=== PATIENT | female | born 1965 | race Caucasian/White ===

== ENCOUNTER 2019-03-05 09:35 | Inpatient (IN) ==
[2019-03-05 09:44] VITALS: BMI 31.8
[2019-03-05] MEDS ORDERED: DEMEROL INJ IVP ONE ×2 (10:25→13:53)
[2019-03-05] MEDS ORDERED: ZOFRAN INJ 4 MG VIAL IVP ONE (10:25)
--- NOTE | 2019-03-05 10:28 | ED.ABDFE ---
HPI Time Seen Time Seen by Provider: 03/05/19 10:23 PCP Primary Care Physician: WANG MEDRANO Complaint Chief Complaint:: PT C/O RUQ PAIN THAT STARTED LAST NIGHT AND IT IS THROBBING AND PT C/O HAVING BLISTERS IN HER MOUTH.B.R Self Treatment fo Chief Complaint: NO WHEEZING NOTED OR BLISTERS NOTED ,BR Source History Provided: Patient Mode of arrival Mode of Arrival: Ambulatory Timing Onset of Chief Complaint: 03/05/19 PMH PMH Past Medical History: Yes Past Medical History: Asthma Past Surgical History: Yes Surgical History: Past Surgical History Comment: BACK Family History History of Family Medical Conditions: No Family Medical History: Diabetes Mellitus, Cancer, [place], Coronary Artery Disease and Hypertension Social History Does patient currently use any type of tobacco product: Yes Have you used tobacco products in the last 12 months: Yes Type of Tobacco Use: Cigarettes How many years tobacco product used: 30 Does any household member use tobacco: No Alcohol Use: None Do you use any recreational Drugs:: No Lives With: Family Lives Where: Home infectious screening In the last 2 months have you had wt loss of >10#?: NO Have you had fever, night sweats or hemotysis?: No Have you traveled outside the country in the last 6 months?: No Isolation: Standard PE Vital Signs Vitals: Temperature 96.0 F Pulse Rate [Left Brachial] 46 Pulse Rate 72 Respiratory Rate 17 Blood Pressure [Left Arm] 115/57 Blood Pressure 150/66 O2 Sat by Pulse Oximetry 95 ROR Labs Reviewed Result Diagrams: 03/05/19 10:15 03/05/19 10:15 Laboratory: WBC 7.0 X10^3/uL (3.6-10.0) 03/05/19 10:15 RBC 3.88 X10^6/uL (3.5-5.4) 03/05/19 10:15 Hgb 13.2 g/dL (12.0-16.0) 03/05/19 10:15 Hct 37.5 % (36.0-47.0) 03/05/19 10:15 MCV 96.6 fL (80.0-100.0) 03/05/19 10:15 MCH 33.9 pg (27.0-34.0) 03/05/19 10:15 MCHC 35.1 g/dL (33.0-35.0) H 09/30/19 10:15 RDW 12.8 % (11.6-16.5) 03/05/19 10:15 Plt Count 194 X10^3/uL (150.0-450.0) 03/05/19 10:15 MPV 9.4 fL (7.4-11.0) 03/05/19 10:15 Neut % (Auto) 49.8 % (42.0-75.0) 03/05/19 10:15 Lymph % (Auto) 44.2 % (21.0-51.0) 03/05/19 10:15 Ward % (Auto) 4.8 % (0.0-13.0) 03/05/19 10:15 Eos % (Auto) 0.9 % (0.9-2.9) 03/05/19 10:15 Baso % (Auto) 0.3 % (0.2-1.0) 03/05/19 10:15 Neut # (Auto) 3.5 x10^3/uL (2.2-4.8) 03/05/19 10:15 Lymph # (Auto) 3.1 X10^3/uL (1.3-2.9) H 03/05/19 10:15 Ward # (Auto) 0.3 x10^3/uL (0.3-0.8) 03/05/19 10:15 Eos # (Auto) 0.1 x10^3/uL (0.0-0.2) 03/05/19 10:15 Baso # (Auto) 0.0 X10^3/uL (0.0-0.1) 03/05/19 10:15 Absolute Nucleated RBC 0.0 /100WBC 03/05/19 10:15 Sodium 143 mmol/L (136-145) 03/05/19 10:15 Corrected Sodium TNP 03/05/19 10:15 Potassium 3.9 mmol/L (3.5-5.1) 03/05/19 10:15 Chloride 107 mmol/L (98-107) 03/05/19 10:15 Carbon Dioxide 28.0 mmol/L (21-32) 03/05/19 10:15 BUN 17 mg/dL (7-18) 03/05/19 10:15 Creatinine 1.19 mg/dL (0.55-1.02) H 03/05/19 10:15 Est GFR (MDRD) Af Amer > 60 (>60) 03/05/19 10:15 Est GFR (MDRD) Non-Af 50 (>60) L 03/05/19 10:15 Glucose 90 mg/dL (65-99) 03/05/19 10:15 Calcium 8.7 mg/dL (8.5-10.1) 03/05/19 10:15 Corrected Calcium TNP 03/05/19 10:15 Total Bilirubin 0.30 mg/dL (0.2-1.0) 03/05/19 10:15 AST 14 Units/L (15-37) L 03/05/19 10:15 ALT 12 Units/L (12-78) 03/05/19 10:15 Alkaline Phosphatase 65 Units/L (46-116) 03/05/19 10:15 Total Protein 6.5 g/dL (6.4-8.2) 03/05/19 10:15 Albumin 3.5 g/dL (3.4-5.0) 03/05/19 10:15 Globulin 3.0 g/dL (2.5-4.5) 03/05/19 10:15 Albumin/Globulin Ratio 1.2 Ratio (1.1-2.1) 03/05/19 10:15 Amylase 180 Units/L (25-115) H 03/05/19 10:15 Lipase 1735 Units/L (73-393) H 03/05/19 10:15 Opioid Opioid Risk Tool Age (Srinath box if 16-45): No History of Preadolescent Sexual Abuse: No Total: 0 Total Score Risk Category: Low Risk Copyright: Dustin OLIVARES predicting aberrant behaviors Instructions Forms: Excuse From Work
[2019-03-05 10:34] LABS: BASOPHILS % (AUTO) 0.3 % (0.2-1.0); EOSINOPHILS # (AUTO) 0.1 x10^3/uL (0.0-0.2); EOSINOPHILS % (AUTO) 0.9 % (0.9-2.9); HEMATOCRIT 37.5 % (36.0-47.0); HEMOGLOBIN 13.2 g/dL (12.0-16.0); LYMPHOCYTES # (AUTO) 3.1 X10^3/uL (1.3-2.9); LYMPHOCYTES % (AUTO) 44.2 % (21.0-51.0); MEAN CORPUSCULAR HEMOGLOBIN 33.9 pg (27.0-34.0); MEAN CORPUSCULAR HGB CONC 35.1 g/dL (33.0-35.0); MEAN CORPUSCULAR VOLUME 96.6 fL (80.0-100.0); MEAN PLATELET VOLUME 9.4 fL (7.4-11.0); MONOCYTES # (AUTO) 0.3 x10^3/uL (0.3-0.8); MONOCYTES % (AUTO) 4.8 % (0.0-13.0); NEUTROPHILS # (AUTO) 3.5 x10^3/uL (2.2-4.8); NEUTROPHILS % (AUTO) 49.8 % (42.0-75.0); PLATELET COUNT 194 X10^3/uL (150.0-450.0); RED BLOOD COUNT 3.88 X10^6/uL (3.5-5.4); RED CELL DISTRIBUTION WIDTH 12.8 % (11.6-16.5)
[2019-03-05] MEDS ORDERED: DEMEROL INJ ONE (10:39)
[2019-03-05] MEDS ORDERED: ZOFRAN INJ 4 MG VIAL ONE (10:39)
[2019-03-05 10:48] LABS: ALANINE AMINOTRANSFERASE 12 Units/L (12-78); ALBUMIN 3.5 g/dL (3.4-5.0); ALKALINE PHOSPHATASE 65 Units/L (46-116); AMYLASE 180 Units/L (25-115); ASPARTATE AMINO TRANSFERASE 14 Units/L (15-37); BLOOD UREA NITROGEN 17 mg/dL (7-18); CALCIUM 8.7 mg/dL (8.5-10.1); CHLORIDE 107 mmol/L (98-107); CREATININE 1.19 mg/dL (0.55-1.02); SODIUM 143 mmol/L (136-145); TOTAL PROTEIN 6.5 g/dL (6.4-8.2); eGFR NON BLACK RACES 50 (>60)
[2019-03-05 10:50] LABS: LIPASE 1735 Units/L (73-393)
[2019-03-05] MEDS ORDERED: NS 100 ML IV 100 ML IV ONE (12:41)
--- NOTE | 2019-03-05 13:28 | CT ---
History: Right upper quadrant pain starting last night, on right side Study: CT of the abdomen and pelvis after intravenous infusion of 75 mL Omnipaque 350. Sagittal and coronal reformations were provided. Dose reduction techniques were utilized. Comparison: March 23, 2014 Findings: The visualized lung bases are grossly clear. The liver and spleen and pancreas and kidneys and adrenal glands are unremarkable. The gallbladder is distended measuring over 11 cm length and 4.3 cm AP diameter. There is no biliary dilatation. The appendix is normal. There is no adenopathy or ascites or hernia. No inflammatory changes are demonstrated. The uterus is normal in size. There is no adnexal mass. No significant bony abnormality is demonstrated. Impression: Distended gallbladder without definite stones. Otherwise unremarkable. Reported By:
[2019-03-05] MEDS: NS 1000 ML 1,000 ML IV SCH (15:49)
--- NOTE | 2019-03-05 16:00 | US ---
STUDY: RIGHT UPPER QUADRANT ABDOMINAL ULTRASOUND HISTORY: Right upper quadrant pain. Tender to touch. Comparison: Abdominal CT from March 05, 2019. Technique: Multiple jerry scale and color flow Doppler images of the right upper quadrant were obtained. Findings: The liver is normal in size and echotexture. There is no evidence of focal mass or intrahepatic bile duct dilatation. The portal vein is normal in appearance and demonstrates hepatopetal flow. The gallbladder is normal in appearance, distended, without evidence of cholelithiasis, cholecystitis, or pericholecystic fluid. Gallbladder wall thickness measures 4.1 mm. The common bile duct measures 3.1 mm. The right kidney is normal in size and echogenicity measuring 10.1 x 5.2 x 4.4 cm. Right renal cortex measures 1.6 cm. There is no evidence of focal parenchymal mass or cyst. There is no evidence of nephrolithiasis or hydronephrosis. The pancreas is unremarkable. The IVC is within normal limits. IMPRESSION: 1. Distended gallbladder with mild gallbladder wall thickening. Otherwise, no evidence of acute cholecystitis at this time. Reported By:
[2019-03-05] MEDS: PROTONIX INJ 40 MG VIAL IVP SCH (19:15)
[2019-03-05] MEDS: DEMEROL INJ IVP PRN ×2 (19:16→23:24)
[2019-03-05] MEDS: MAGIC MOUTHWASH MT PRN (20:40)
[2019-03-06] MEDS: NS 1000 ML 1,000 ML IV SCH ×4 (00:06→16:00)
[2019-03-06] MEDS: DEMEROL INJ IVP PRN ×4 (04:17→17:00)
[2019-03-06] MEDS: MAGIC MOUTHWASH MT PRN ×2 (05:15→13:01)
[2019-03-06 05:38] LABS: BASOPHILS % (AUTO) 0.4 % (0.2-1.0); EOSINOPHILS # (AUTO) 0.1 x10^3/uL (0.0-0.2); EOSINOPHILS % (AUTO) 1.2 % (0.9-2.9); HEMATOCRIT 34.4 % (36.0-47.0); HEMOGLOBIN 12.2 g/dL (12.0-16.0); LYMPHOCYTES # (AUTO) 2.9 X10^3/uL (1.3-2.9); LYMPHOCYTES % (AUTO) 60.8 % (21.0-51.0); MEAN CORPUSCULAR HEMOGLOBIN 34.6 pg (27.0-34.0); MEAN CORPUSCULAR HGB CONC 35.5 g/dL (33.0-35.0); MEAN CORPUSCULAR VOLUME 97.7 fL (80.0-100.0); MONOCYTES # (AUTO) 0.3 x10^3/uL (0.3-0.8); MONOCYTES % (AUTO) 5.7 % (0.0-13.0); NEUTROPHILS # (AUTO) 1.5 x10^3/uL (2.2-4.8); NEUTROPHILS % (AUTO) 31.9 % (42.0-75.0); PLATELET COUNT 164 X10^3/uL (150.0-450.0); RED BLOOD COUNT 3.52 X10^6/uL (3.5-5.4); RED CELL DISTRIBUTION WIDTH 12.6 % (11.6-16.5); WHITE BLOOD COUNT 4.8 X10^3/uL (3.6-10.0)
[2019-03-06 05:49] LABS: ALANINE AMINOTRANSFERASE 18 Units/L (12-78); ALKALINE PHOSPHATASE 55 Units/L (46-116); AMYLASE 79 Units/L (25-115); ASPARTATE AMINO TRANSFERASE 15 Units/L (15-37); BLOOD UREA NITROGEN 14 mg/dL (7-18); CALCIUM 8.3 mg/dL (8.5-10.1); CARBON DIOXIDE 27.1 mmol/L (21-32); CHLORIDE 108 mmol/L (98-107); COR CA(FOR HYPOALB) 9.1 mg/dL (8.5-10.1); CREATININE 0.88 mg/dL (0.55-1.02); LIPASE 259 Units/L (73-393); SODIUM 143 mmol/L (136-145); TOTAL PROTEIN 5.8 g/dL (6.4-8.2); eGFR NON BLACK RACES > 60 (>60)
[2019-03-06 05:52] LABS: PLATELET MORPHOLOGY COMMENT NORMAL (NORMAL)
[2019-03-06] MEDS: PROTONIX INJ 40 MG VIAL IVP SCH (08:27)
[2019-03-06] MEDS ORDERED: PHARMACY CONSULT - DOSE _____ XX SCH (10:00)
--- NOTE | 2019-03-06 11:36 | DR.PROGNOT ---
Hospital Progress Notes - Progress Note for Day of: Progress Note Date: 03/06/19 - Chief Complaint Chief Complaint: still c/o moderate to severe RUQ pain .no vomiting today . GB US showed dilated GB , no stones . improved Amylase and Lipase . - Past Medical Family Social History Past Med/Fam/Surg Hx: No changes since H&P Allergies: Allergies No Known Drug Allergies Allergy (Verified 03/05/19 09:44) - Review Of Systems ROS: No change since H&P - Vital Signs Vital Signs: Temperature 98.3 F Pulse Rate [Left Brachial] 56 Pulse Rate 72 Respiratory Rate 18 Blood Pressure [Left Arm] 121/60 Blood Pressure 150/66 O2 Sat by Pulse Oximetry 96 - Physical Exam Oriented: Normal Throat: Normal Cardiovascular: Normal : Normal GI:Auscultation: Decreased GI:Palpation: Normal GI: Tenderness: RUQ (soft , full abdomen with RUQ renderness . BS hypoactive .) Speech Pattern: Clear, Appropriate - Laboratory and Diagnostics Result Diagrams: 03/06/19 04:00 03/06/19 04:00 Labs: Laboratory WBC 4.8 X10^3/uL (3.6-10.0) 03/06/19 04:00 RBC 3.52 X10^6/uL (3.5-5.4) 03/06/19 04:00 Hgb 12.2 g/dL (12.0-16.0) 03/06/19 04:00 Hct 34.4 % (36.0-47.0) L 03/06/19 04:00 MCV 97.7 fL (80.0-100.0) 03/06/19 04:00 MCH 34.6 pg (27.0-34.0) H 03/06/19 04:00 MCHC 35.5 g/dL (33.0-35.0) H 03/06/19 04:00 RDW 12.6 % (11.6-16.5) 03/06/19 04:00 Plt Count 164 X10^3/uL (150.0-450.0) 03/06/19 04:00 Plt Count Comment Adequate (ADEQUATE) 03/06/19 04:00 MPV 10.0 fL (7.4-11.0) 03/06/19 04:00 Neut % (Auto) 31.9 % (42.0-75.0) L 03/06/19 04:00 Lymph % (Auto) 60.8 % (21.0-51.0) H 03/06/19 04:00 [place] % (Auto) 5.7 % (0.0-13.0) 03/06/19 04:00 Eos % (Auto) 1.2 % (0.9-2.9) 03/06/19 04:00 Baso % (Auto) 0.4 % (0.2-1.0) 03/06/19 04:00 Neut # (Auto) 1.5 x10^3/uL (2.2-4.8) L 03/06/19 04:00 Lymph # (Auto) 2.9 X10^3/uL (1.3-2.9) 03/06/19 04:00 [place] # (Auto) 0.3 x10^3/uL (0.3-0.8) 03/06/19 04:00 Eos # (Auto) 0.1 x10^3/uL (0.0-0.2) 03/06/19 04:00 Baso # (Auto) 0.0 X10^3/uL (0.0-0.1) 03/06/19 04:00 Absolute Nucleated RBC 0.0 /100WBC 03/06/19 04:00 Total Counted 100 03/06/19 04:00 Neutrophils % (Manual) 39 % (39-76) 03/06/19 04:00 Lymphocytes % (Manual) 53 % (13-43) H 03/06/19 04:00 Monocytes % (Manual) 6 % (4-9) 03/06/19 04:00 Eosinophils % (Manual) 2 % (0-6) 03/06/19 04:00 Plt Morphology Comment Normal (NORMAL) 03/06/19 04:00 RBC Morphology Normal (NORMAL) 03/06/19 04:00 Sodium 143 mmol/L (136-145) 03/06/19 04:00 Corrected Sodium TNP 03/06/19 04:00 Potassium 3.6 mmol/L (3.5-5.1) 03/06/19 04:00 Chloride 108 mmol/L (98-107) H 03/06/19 04:00 Carbon Dioxide 27.1 mmol/L (21-32) 03/06/19 04:00 BUN 14 mg/dL (7-18) 03/06/19 04:00 Creatinine 0.88 mg/dL (0.55-1.02) 03/06/19 04:00 Est GFR (MDRD) Af Amer > 60 (>60) 03/06/19 04:00 Est GFR (MDRD) Non-Af > 60 (>60) 03/06/19 04:00 Glucose 74 mg/dL (65-99) 03/06/19 04:00 Calcium 8.3 mg/dL (8.5-10.1) L 03/06/19 04:00 Corrected Calcium 9.1 mg/dL (8.5-10.1) 03/06/19 04:00 Total Bilirubin 0.30 mg/dL (0.2-1.0) 03/06/19 04:00 AST 15 Units/L (15-37) 03/06/19 04:00 ALT 18 Units/L (12-78) 03/06/19 04:00 Alkaline Phosphatase 55 Units/L (46-116) 03/06/19 04:00 Total Protein 5.8 g/dL (6.4-8.2) L 03/06/19 04:00 Albumin 3.0 g/dL (3.4-5.0) L 03/06/19 04:00 Globulin 2.8 g/dL (2.5-4.5) 03/06/19 04:00 Albumin/Globulin Ratio 1.1 Ratio (1.1-2.1) 03/06/19 04:00 Amylase 79 Units/L (25-115) 03/06/19 04:00 Lipase 259 Units/L (73-393) 03/06/19 04:00 Urine Opiates Screen Positive (NEG=<300) A 03/05/19 19:05 Urine Methadone Screen Negative (NEG=<300) 03/05/19 19:05 Ur Barbiturates Screen Negative (NEG=<200) 03/05/19 19:05 Ur Phencyclidine Scrn Negative (NEG=<25) 03/05/19 19:05 Ur Amphetamines Screen Negative (NEG=<1000) 03/05/19 19:05 U Benzodiazepines Scrn Negative (NEG=<200) 03/05/19 19:05 Urine Cocaine Screen Positive (NEG=<300) A 03/05/19 19:05 U Marijuana (THC) Screen Negative (NEG=<50) 03/05/19 19:05 - Assessment and Plan 1: subsiding gallstone pancreatitis . for lap armando in am . clear liquid today . NPO after MN.
[2019-03-06] MEDS: NYSTATIN POWDER TOP SCH ×2 (12:52→20:42)
[2019-03-06] MEDS: ZOFRAN INJ 4 MG VIAL IVP PRN ×2 (13:01→19:00)
--- NOTE | 2019-03-06 15:16 | RAD ---
History: Preop for gallbladder surgery Study: Portable AP chest Comparison: January 13, 2016 Findings: The lungs are clear and the heart and mediastinum are unremarkable. There is no edema or effusion or congestion. Impression: No evidence for active cardiopulmonary disease Reported By:
[2019-03-06 15:45] LABS: CKMB % 2.8 % (<4); CREATINE KINASE 36 Units/L (26-192); CREATINE KINASE MB < 1.0 ng/mL (0-4.0); TROPONIN I < 0.02 ng/mL (0-1.5)
--- NOTE | 2019-03-06 18:08 | DR.H&P ---
H&P - History & Physical for Day of: H&P Date: 03/05/19 - Chief Complaint Chief Complaint: RUQ PAIN, N/V - History of Present Illness History of Present Illness: PT C/O RUQ PAIN THAT STARTED LAST NIGHT AND IT IS THROBBING AND PT C/O HAVING BLISTERS IN HER MOUTH.B.R - Past Medical History Past Medical History: Asthma - Past Surgical History Surgical History: , Ortho Surgery - Family History Family Medical History: Cancer - Social History Does patient currently use any type of tobacco product: Yes Have you used tobacco products in the last 12 months: Yes Type of Tobacco Use: Cigarettes How many years tobacco product used: 30 Does any household member use tobacco: No Alcohol Use: None Drug Use: Cocaine - Medications Home Medications: No Known Drug Allergies Allergy (Verified 03/05/19 09:44) CONTINUE taking the following medications Magic Mouth Wash 5 ml PO TID 03/05/19 [History] - Review of Systems Constitutional: No Symptoms Reported Eyes: No Symptoms Reported ENT: Mouth Pain Respiratory: No Symptoms Reported Cardiovascular: No Symptoms Reported Gastrointestinal: Nausea, Vomiting, Abdominal Pain Genitourinary: No Symptoms Reported Musculoskeletal: No Symptoms Reported Skin: No Symptoms Reported Neurological: No Symptoms Reported - Physical Exam Vital Signs: Temperature 97.9 F Pulse Rate [Left Brachial] 48 Pulse Rate 72 Respiratory Rate 18 Blood Pressure [Left Arm] 113/57 Blood Pressure 150/66 O2 Sat by Pulse Oximetry 96 Oriented: Normal Eyes: Normal Ear: Normal Nose: Normal Throat: Dry Respiratory: Clear Throughout Cardiovascular: Normal. negative: Murmur : Normal Auscultation: Bowel Sounds: Normal Palpation: Normal Tenderness: RUQ, LUQ, Epigastric Skin: Normal Musculoskeletal: Normal Psychiatric: Normal Affect: Anxious Speech Pattern: Clear, Appropriate - Assessment/Plan (1) Right upper quadrant abdominal pain Status: Acute Plan: ADMIT, NPO. IV HYDRATION, PAIN AND NAUSEA CONTROL. PPI, CONSULT DR EDWARDS US (2) Acute pancreatitis Status: Acute (3) Abdominal pain Status: Acute - Allergies Allergies/Adverse Reactions: Allergies Allergy/AdvReac Type Severity Reaction Status Date / Time No Known Drug Allergies Allergy Verified 03/05/19 09:44
[2019-03-06] MEDS ORDERED: NORCO 5/325 MG TAB PO PRN (20:35)
[2019-03-07] MEDS: NS 1000 ML 1,000 ML IV SCH ×4 (00:06→20:38)
[2019-03-07 05:19] LABS: BASOPHILS % (AUTO) 0.4 % (0.2-1.0); EOSINOPHILS # (AUTO) 0.1 x10^3/uL (0.0-0.2); EOSINOPHILS % (AUTO) 1.9 % (0.9-2.9); HEMOGLOBIN 12.1 g/dL (12.0-16.0); LYMPHOCYTES # (AUTO) 2.6 X10^3/uL (1.3-2.9); LYMPHOCYTES % (AUTO) 57.4 % (21.0-51.0); MEAN CORPUSCULAR HEMOGLOBIN 34.3 pg (27.0-34.0); MEAN CORPUSCULAR HGB CONC 35.6 g/dL (33.0-35.0); MEAN CORPUSCULAR VOLUME 96.2 fL (80.0-100.0); MEAN PLATELET VOLUME 9.5 fL (7.4-11.0); MONOCYTES # (AUTO) 0.3 x10^3/uL (0.3-0.8); MONOCYTES % (AUTO) 5.6 % (0.0-13.0); NEUTROPHILS # (AUTO) 1.6 x10^3/uL (2.2-4.8); NEUTROPHILS % (AUTO) 34.7 % (42.0-75.0); PLATELET COUNT 170 X10^3/uL (150.0-450.0); RED BLOOD COUNT 3.54 X10^6/uL (3.5-5.4); RED CELL DISTRIBUTION WIDTH 12.5 % (11.6-16.5); WHITE BLOOD COUNT 4.6 X10^3/uL (3.6-10.0)
[2019-03-07 05:28] LABS: ALANINE AMINOTRANSFERASE 19 Units/L (12-78); ALBUMIN 2.9 g/dL (3.4-5.0); ALKALINE PHOSPHATASE 54 Units/L (46-116); ASPARTATE AMINO TRANSFERASE 13 Units/L (15-37); BLOOD UREA NITROGEN 6 mg/dL (7-18); CALCIUM 8.3 mg/dL (8.5-10.1); CARBON DIOXIDE 29.5 mmol/L (21-32); CHLORIDE 108 mmol/L (98-107); COR CA(FOR HYPOALB) 9.2 mg/dL (8.5-10.1); CREATININE 0.82 mg/dL (0.55-1.02); SODIUM 142 mmol/L (136-145); TOTAL PROTEIN 5.6 g/dL (6.4-8.2); eGFR NON BLACK RACES > 60 (>60)
[2019-03-07] MEDS ORDERED: K-DUR TAB 20 MEQ PO PRN (05:38)
[2019-03-07] MEDS ORDERED: POTASSIUM CHLORIDE LIQ 20 MEQ UDC PO PRN (05:38)
[2019-03-07] MEDS ORDERED: KLOR-CON PO PRN (05:38)
[2019-03-07] MEDS ORDERED: POTASSIUM CHL 60 MEQ/NS 0.45% 500 ML IV PRN (05:38)
[2019-03-07] MEDS ORDERED: K-RIDER 10 MEQ/NS 100 ML 10 MEQ/100 ML BAG IV PRN (05:38)
[2019-03-07] MEDS ORDERED: POTASSIUM CHL 40 MEQ/NS 0.45% 500 ML IV PRN (05:38)
[2019-03-07] MEDS ORDERED: MICRO K EXTEN CAP 10 MEQ PO PRN (05:38)
[2019-03-07] MEDS: PROTONIX INJ 40 MG VIAL IVP SCH (09:19)
[2019-03-07] MEDS: NYSTATIN POWDER TOP SCH ×2 (09:22→20:39)
[2019-03-07] MEDS ORDERED: TORADOL 30 MG VIAL ONE (09:40)
[2019-03-07] MEDS ORDERED: ROBINUL ONE (09:40)
[2019-03-07] MEDS ORDERED: XYLOCAINE 2 % (PLAIN) ONE (09:40)
[2019-03-07] MEDS ORDERED: SUPRANE ONE (09:40)
[2019-03-07] MEDS ORDERED: NEOSTIGMINE INJ ONE (09:40)
[2019-03-07] MEDS ORDERED: DIPRIVAN VIAL ONE (09:40)
[2019-03-07] MEDS ORDERED: VERSED ONE (09:40)
[2019-03-07] MEDS ORDERED: ZOFRAN INJ 4 MG VIAL ONE (09:40)
[2019-03-07] MEDS ORDERED: LTA KIT LIDOCAINE 4% ONE (09:40)
[2019-03-07] MEDS ORDERED: QUELICIN (OR ANECTINE) ONE (09:40)
[2019-03-07] MEDS ORDERED: ATROPINE SULFATE ONE (09:40)
[2019-03-07] MEDS ORDERED: LR 1000 ML IV 1,000 ML IV ONE ×2 (09:44→12:03)
[2019-03-07] MEDS ORDERED: DECADRON INJ ONE (09:45)
[2019-03-07] MEDS ORDERED: MORPHINE SULFATE INJ 10 MG ONE (09:45)
[2019-03-07] MEDS ORDERED: FENTANYL INJ 100 mcg ONE ×2 (09:45→10:24)
[2019-03-07] MEDS: DEMEROL INJ IVP PRN ×3 (10:01→22:10)
[2019-03-07] MEDS ORDERED: BACTROBAN TOPICAL OINT ONE (10:08)
[2019-03-07] MEDS ORDERED: DILAUDID INJ ONE (10:24)
[2019-03-07] MEDS ORDERED: NS 100 ML IV 100 ML IV ONE (12:03)
[2019-03-07] MEDS ORDERED: ANCEF VIAL 1 GRAM ONE (12:03)
[2019-03-07] MEDS ORDERED: BENADRYL INJ 50 MG VIAL IVP PRN (13:22)
[2019-03-07] MEDS ORDERED: ZOFRAN INJ 4 MG VIAL IVP PRN (13:22)
[2019-03-07] MEDS ORDERED: REGLAN INJ 10 MG VIAL IVP PRN (13:22)
[2019-03-07] MEDS ORDERED: PHENERGAN INJ 25 MG IM PRN (13:22)
[2019-03-07] MEDS ORDERED: DILAUDID INJ IVP PRN (13:22)
--- NOTE | 2019-03-07 13:40 | OR.IMMED ---
Immediate Post-Op Note - Immediate Post-Op Note Pre-Op Diagnosis: gallstone pancreatitis. Post-Op Diagnosis: cholecystitis with distended GB and edematous wall . Procedure: diagnostic lap and lap armando . Surgeon/Robotic Machine Operator: Elmer Specimens Removed: GB Estimated Blood Loss: 10 cc Drains: NONE Complications: no . Condition: Stable (clear liquid today .)
[2019-03-07] MEDS ORDERED: NS IRRIGATION 3000 ML ONE (14:33)
[2019-03-07] MEDS: ZOFRAN INJ 4 MG VIAL IVP PRN (20:38)
[2019-03-08] MEDS: NS 1000 ML 1,000 ML IV SCH ×3 (01:52→08:45)
[2019-03-08] MEDS: DEMEROL INJ IVP PRN ×2 (02:20→06:42)
[2019-03-08 05:17] LABS: BASOPHILS % (AUTO) 0.1 % (0.2-1.0); EOSINOPHILS % (AUTO) 0.2 % (0.9-2.9); HEMATOCRIT 32.6 % (36.0-47.0); HEMOGLOBIN 11.5 g/dL (12.0-16.0); LYMPHOCYTES # (AUTO) 1.5 X10^3/uL (1.3-2.9); LYMPHOCYTES % (AUTO) 17.1 % (21.0-51.0); MEAN CORPUSCULAR HGB CONC 35.3 g/dL (33.0-35.0); MEAN CORPUSCULAR VOLUME 96.2 fL (80.0-100.0); MONOCYTES # (AUTO) 0.4 x10^3/uL (0.3-0.8); MONOCYTES % (AUTO) 4.4 % (0.0-13.0); NEUTROPHILS # (AUTO) 6.7 x10^3/uL (2.2-4.8); NEUTROPHILS % (AUTO) 78.2 % (42.0-75.0); PLATELET COUNT 181 X10^3/uL (150.0-450.0); RED BLOOD COUNT 3.39 X10^6/uL (3.5-5.4); RED CELL DISTRIBUTION WIDTH 12.2 % (11.6-16.5); WHITE BLOOD COUNT 8.6 X10^3/uL (3.6-10.0)
[2019-03-08 05:37] LABS: ALANINE AMINOTRANSFERASE 157 Units/L (12-78); ALKALINE PHOSPHATASE 72 Units/L (46-116); ASPARTATE AMINO TRANSFERASE 91 Units/L (15-37); BLOOD UREA NITROGEN 3 mg/dL (7-18); CALCIUM 8.3 mg/dL (8.5-10.1); CARBON DIOXIDE 26.9 mmol/L (21-32); CHLORIDE 107 mmol/L (98-107); COR CA(FOR HYPOALB) 9.1 mg/dL (8.5-10.1); COR NA(FOR HYPERGLY) 141 mmol/L (136-145); CREATININE 0.85 mg/dL (0.55-1.02); SODIUM 140 mmol/L (136-145); eGFR NON BLACK RACES > 60 (>60)
[2019-03-08] MEDS: ZOFRAN INJ 4 MG VIAL IVP PRN (07:30)
[2019-03-08] MEDS: PROTONIX INJ 40 MG VIAL IVP SCH (08:43)
[2019-03-08] MEDS: NYSTATIN POWDER TOP SCH (08:44)
[2019-03-08] MEDS ORDERED: DEMEROL INJ IVP PRN (11:00)
[2019-03-08 12:00] VITALS: BP 139/84
== END 2019-03-08 12:00 | disposition home or self-care (01) | DRG 419 ==
LOC: ER 09:38 → MED/SURG 15:09
PROVIDERS: ADMIT Internal Medicine; ATTEND Internal Medicine
DX: K12.1 Other forms of stomatitis; R10.11 Right upper quadrant pain; J45.909 Unspecified asthma, uncomplicated; F14.90 Cocaine use, unspecified, uncomplicated; R10.84 Generalized abdominal pain; F11.90 Opioid use, unspecified, uncomplicated; R74.0 Nonspecific elevation of levels of transaminase and lactic acid dehydrogenase [LDH]; K85.10 Biliary acute pancreatitis without necrosis or infection; R11.2 Nausea with vomiting, unspecified; R00.1 Bradycardia, unspecified; R94.4 Abnormal results of kidney function studies
CPT/HCPCS: 36415; 71010; 71045; 74177; 76705; 80053; 80307; 82150; 82550; 82553; 83690; 83735; 84484; 85025; 87070; 87651; 93005; 93306; 96365; 96372; 96374; 96375; 99282; 99283; 99284; A4222; C9113; S0028; G0434; J0330; J0461; J0690; J1100; J1170; J1885; J2175; J2250; J2270; J2405; J2704; J2710; J2930; J3010; J3490; J7030; J7040; J7050; J7120

== ENCOUNTER 2019-03-09 09:05 | Inpatient (IN) ==
[2019-03-09 09:19] VITALS: BMI 31.8
[2019-03-09] MEDS ORDERED: DEMEROL INJ IVP ONE (09:20)
[2019-03-09] MEDS ORDERED: ZOFRAN INJ 4 MG VIAL IVP ONE (09:20)
[2019-03-09] MEDS ORDERED: ZOFRAN INJ 4 MG VIAL ONE (09:21)
[2019-03-09] MEDS ORDERED: DEMEROL INJ ONE (09:21)
[2019-03-09 09:43] LABS: BASOPHILS % (AUTO) 0.2 % (0.2-1.0); EOSINOPHILS % (AUTO) 0.1 % (0.9-2.9); HEMATOCRIT 32.9 % (36.0-47.0); HEMOGLOBIN 11.7 g/dL (12.0-16.0); LYMPHOCYTES # (AUTO) 1.4 X10^3/uL (1.3-2.9); LYMPHOCYTES % (AUTO) 17.4 % (21.0-51.0); MEAN CORPUSCULAR HGB CONC 35.7 g/dL (33.0-35.0); MEAN CORPUSCULAR VOLUME 95.2 fL (80.0-100.0); MEAN PLATELET VOLUME 9.1 fL (7.4-11.0); MONOCYTES # (AUTO) 0.5 x10^3/uL (0.3-0.8); MONOCYTES % (AUTO) 6.1 % (0.0-13.0); NEUTROPHILS % (AUTO) 76.2 % (42.0-75.0); PLATELET COUNT 175 X10^3/uL (150.0-450.0); RED BLOOD COUNT 3.45 X10^6/uL (3.5-5.4); RED CELL DISTRIBUTION WIDTH 12.6 % (11.6-16.5); WHITE BLOOD COUNT 7.9 X10^3/uL (3.6-10.0)
[2019-03-09 10:05] LABS: ALANINE AMINOTRANSFERASE 119 Units/L (12-78); ALBUMIN 3.4 g/dL (3.4-5.0); ALKALINE PHOSPHATASE 71 Units/L (46-116); ASPARTATE AMINO TRANSFERASE 40 Units/L (15-37); BLOOD UREA NITROGEN 5 mg/dL (7-18); CALCIUM 8.8 mg/dL (8.5-10.1); CARBON DIOXIDE 30.4 mmol/L (21-32); CHLORIDE 103 mmol/L (98-107); COR NA(FOR HYPERGLY) 138 mmol/L (136-145); SODIUM 138 mmol/L (136-145); TOTAL PROTEIN 6.6 g/dL (6.4-8.2); eGFR NON BLACK RACES > 60 (>60)
--- NOTE | 2019-03-09 10:11 | DR.GENAD ---
HPI Time Seen Time Seen by Provider: 03/09/19 09:10 PCP Primary Care Physician: JOSELUIS HPI Comment HPI Comment: PATIENT IS 54YR OLD WHITE FEMALE IN ER WITH ABDOMINAL PAIN AND DISTENSION, NAUSEA AND VOMITING TIMES 2 DAYS. PATIENT IS S/P LAP CHOLECYSTECTOMY 2 DAYS AGO. SHE WAS DISCHARGE HOME YESTERDAY AND CAME TO ER SAME DAY BECAUSE OF INCREASING PAIN. WAS EVALUATED AND DISCHARGE HOME. FEW HOURS LATER SHE IS HERE WITH SHARP 10/10 PAIN THAT IS DIFFUSE. PATIENT IS RUNNING LOW GRADE FEVER. PAIN RADIATES TO THE BACK. Complaint/Symptoms Chief Complaint Doctors Comments: ABDOMINAL PAIN, NAUSEA AND VOMITING AFTER Chief Complaint:: PT IS 2 DAYS POST OP S/P LAP FARRUKH. PT C/O GENERALIZED ABDOMINAL AND CHEST PAIN. DENIES HAVING BM OR PASSING GAS SINCE SURGERY. PT WAS SEEN IN ER YESTERDAY FOR SAME COMPLAINT. Nurses notes reviewed Nurses Notes Review: Yes Source History Provided: Patient and EMS Mode of Arrival Mode of Arrival: Stretcher Timing Onset of Chief Complaint: 03/09/19 Came on: Suddenly Duration Duration: Constant Duration: Days Location Location: ABDOMEN. Modifying Factors Worsens:: MOVEMENT Improves:: RESTING. Associated Signs and Symptoms Associated Signs and Symptoms: ABDOMINAL DISTENSION. Other History Other History: POST CHOLECYSTITIS PMH PMH Past Medical History: Yes Past Medical History: Asthma Past Surgical History: Yes Surgical History: , Cholecystectomy and Ortho Surgery Family History History of Family Medical Conditions: Yes Family Medical History: Cancer Social History Does patient currently use any type of tobacco product: Yes Have you used tobacco products in the last 12 months: Yes Type of Tobacco Use: Cigarettes How many years tobacco product used: 5 Does any household member use tobacco: Yes Alcohol Use: None Do you use any recreational Drugs:: No Lives With: Family Lives Where: Home infectious screening In the last 2 months have you had wt loss of >10#?: NO Have you had fever, night sweats or hemotysis?: No Have you traveled outside the country in the last 6 months?: No Isolation: Standard ROS Review of Systems Constitutional: No Symptoms Reported, See HPI, Fever, Weakness and Fatigue Eyes: No Symptoms Reported and See HPI ENTM: No Symptoms Reported and See HPI Respiratoy: No Symptoms Reported and See HPI; negative Moist Cough, Short of Breath and Wheezing Cardiovascular: See HPI and Edema (FEET.); negative Chest Pain Gastrointestinal/Abdominal: See HPI, Abdominal Pain, Nausea and Vomiting Genitourinary: No Symptoms Reported and See HPI; negative Dysuria, Frequency and Hematuria Neurological: See HPI and Weakness; negative Headache and Dizziness Musculoskeletal: See HPI and Muscle Pain; negative Back Pain Integumentary: No Symptoms Reported and See HPI; negative Change in Color, Rash and Juandice Hematologic/Lymphatic: No Symptoms Reported and See HPI; negative Easy Bleeding, Easy Bruising and Swollen Glands Endocrine: No Symptoms Reported and See HPI; negative Increased Thirst and Increased Urine Psychiatric: No Symptoms Reported and See HPI All Other Systems: Reviewed and Negative PE Vital Signs Vitals: Temperature 99.1 F Pulse Rate [Left Radial] 66 Pulse Rate 51 Respiratory Rate 18 Blood Pressure [Right Arm] 148/85 Blood Pressure [Left Arm] 169/75 Blood Pressure 141/67 O2 Sat by Pulse Oximetry 96 General Limitations: No Limitations General Appearance: Alert and In No Apparent Distress Head Head Exam: Normal Inspection and Atraumatic Eyes Eye exam: Normal Appearance and PERRL; negative Scleral Icterus and Conjunctival Injection ENT ENT Exam: Normal Exam, Normal Oropharynx, Normal External Ear Exam and TM's Normal Bilaterally External Ear Exam: Normal External Inspection; negative Mastoid Tenderness, Pain with Movement and External Tenderness TM/Canal Exam: Bilateral: Normal Nose Exam: Normal Nose Exam; negative Sinus Tenderness, Nasal Deviation and Septal Hematoma Mouth Exam: Normal Inspection; negative Lip Swelling and Tongue Swelling Throat Exam: Normal Inspection; negative Tonsillar Erythema, Tonsillomegaly and Tonsillar Exudate Neck Neck Exam: Normal Inspection and Trachea Midline; negative Tenderness and Lymphadenopathy Chest Chest Inspection: Normal Inspection and Symmetric Chest Wall Rise; negative Tenderness Respiratory Respiratory Exam: Normal Lung Sounds Bilat; negative Accessory Muscle Use, Chest Wall Tenderness and Respiratory Distress Respiratory Exam: Bilateral: Clear to Auscultation Cardiovascular Cardiovascular Exam: Regular Rate, Normal Rhythm and Normal Heart Sounds; negative Systolic Murmur and Diastolic Murmur Abdominal Exam Abdominal Exam: Distention, Tenderness, Guarding and Hypoactive Bowel Sounds Abdominal Tenderness: Diffuse and Moderate Extremities Extremities Exam: Normal Inspection, Normal Capillary Refill and Edema (FEET SWOLLEN.); negative Calf Tenderness Back Back Exam: Normal Inspection; negative Tenderness, (R) CVA Tenderness, (L) CVA Tenderness, Paraspinal Tenderness and Vertebral Tenderness Neurologic Neurological Exam: Alert, Oriented X3 and CN II-XII Intact; negative Motor Sensory Deficit Psychiatric Psychiatric Exam: Normal Affect and Normal Mood Skin Skin Exam: Dry MDM Differential Diagnosis Differential Diagnosis: ABDOMINAL PAIN, POST CHOLECYSTECTOMY, DEHYDRATION, INTRACTABLE PAIN, GI OBS COURSE Treatment Treatment: SEE ORDERS. Consultation Consultation Comments: DISCUSSED PATIENT WITH DR. PIÑA, HE WILL ADMIT PATIENT. Education/Counseling Education/Counseling: Patient Educated On: Diagnosis ROR Labs Reviewed Laboratory Results Reviewed?: Yes Result Diagrams: 03/10/19 03:55 03/10/19 03:55 Laboratory: WBC 7.9 X10^3/uL (3.6-10.0) 03/09/19 09:34 RBC 3.45 X10^6/uL (3.5-5.4) L 03/09/19 09:34 Hgb 11.7 g/dL (12.0-16.0) L 03/09/19 09:34 Hct 32.9 % (36.0-47.0) L 03/09/19 09:34 MCV 95.2 fL (80.0-100.0) 03/09/19 09:34 MCH 34.0 pg (27.0-34.0) 03/09/19 09:34 MCHC 35.7 g/dL (33.0-35.0) H 03/09/19 09:34 RDW 12.6 % (11.6-16.5) 03/09/19 09:34 Plt Count 175 X10^3/uL (150.0-450.0) 03/09/19 09:34 MPV 9.1 fL (7.4-11.0) 03/09/19 09:34 Neut % (Auto) 76.2 % (42.0-75.0) H 03/09/19 09:34 Lymph % (Auto) 17.4 % (21.0-51.0) L 03/09/19 09:34 [place] % (Auto) 6.1 % (0.0-13.0) 03/09/19 09:34 Eos % (Auto) 0.1 % (0.9-2.9) L 03/09/19 09:34 Baso % (Auto) 0.2 % (0.2-1.0) 03/09/19 09:34 Neut # (Auto) 6.0 x10^3/uL (2.2-4.8) H 03/09/19 09:34 Lymph # (Auto) 1.4 X10^3/uL (1.3-2.9) 03/09/19 09:34 [place] # (Auto) 0.5 x10^3/uL (0.3-0.8) 03/09/19 09:34 Eos # (Auto) 0.0 x10^3/uL (0.0-0.2) 03/09/19 09:34 Baso # (Auto) 0.0 X10^3/uL (0.0-0.1) 03/09/19 09:34 Absolute Nucleated RBC 0.0 /100WBC 03/09/19 09:34 Sodium 138 mmol/L (136-145) 03/09/19 09:34 Corrected Sodium 138 mmol/L (136-145) 03/09/19 09:34 Potassium 3.3 mmol/L (3.5-5.1) L 03/09/19 09:34 Chloride 103 mmol/L (98-107) 03/09/19 09:34 Carbon Dioxide 30.4 mmol/L (21-32) 03/09/19 09:34 BUN 5 mg/dL (7-18) L 03/09/19 09:34 Creatinine 0.80 mg/dL (0.55-1.02) 03/09/19 09:34 Est GFR (MDRD) Af Amer > 60 (>60) 03/09/19 09:34 Est GFR (MDRD) Non-Af > 60 (>60) 03/09/19 09:34 Glucose 117 mg/dL (65-99) H 03/09/19 09:34 Calcium 8.8 mg/dL (8.5-10.1) 03/09/19 09:34 Corrected Calcium TNP 03/09/19 09:34 Magnesium 1.8 mg/dL (1.7-2.9) 03/09/19 09:34 Total Bilirubin 0.50 mg/dL (0.2-1.0) 03/09/19 09:34 AST 40 Units/L (15-37) H 03/09/19 09:34 ALT 119 Units/L (12-78) H 03/09/19 09:34 Alkaline Phosphatase 71 Units/L (46-116) 03/09/19 09:34 Total Protein 6.6 g/dL (6.4-8.2) 03/09/19 09:34 Albumin 3.4 g/dL (3.4-5.0) 03/09/19 09:34 Globulin 3.2 g/dL (2.5-4.5) 03/09/19 09:34 Albumin/Globulin Ratio 1.1 Ratio (1.1-2.1) 03/09/19 09:34 Amylase 44 Units/L (25-115) 03/09/19 09:34 Lipase 95 Units/L (73-393) 03/09/19 09:34 Specimen Type Clean catch urine 03/09/19 10:38 Urine Color Yellow (YELLOW) 03/09/19 10:38 Urine Appearance Clear (CLEAR) 03/09/19 10:38 Urine pH 7.0 (5.0 - 8.0) 03/09/19 10:38 Ur Specific [place] 1.015 (1.000-1.030) 03/09/19 10:38 Urine Protein Negative (NEGATIVE) 03/09/19 10:38 Urine Glucose (UA) Negative (NEGATIVE) 03/09/19 10:38 Urine Ketones Negative (NEGATIVE) 03/09/19 10:38 Urine Occult Blood Negative (NEGATIVE) 03/09/19 10:38 Urine Nitrite Negative (NEGATIVE) 03/09/19 10:38 Urine Bilirubin Negative (NEGATIVE) 03/09/19 10:38 Urine Urobilinogen Normal (NORMAL) 03/09/19 10:38 Ur Leukocyte Esterase 1+ (NEGATIVE) 03/09/19 10:38 Urine RBC None seen /HPF (0-3) 03/09/19 10:38 Urine WBC 3-5 /HPF (0-5) 03/09/19 10:38 Ur Squamous Epith Cells Rare /HPF (NEGATIVE) 03/09/19 10:38 Urine Bacteria Negative /HPF (NEGATIVE) 03/09/19 10:38 Ur Culture Indicated? No/not indicated 03/09/19 10:38 Urine Opiates Screen Positive (NEG=<300) A 03/09/19 10:35 Urine Methadone Screen Negative (NEG=<300) 03/09/19 10:35 Ur Barbiturates Screen Negative (NEG=<200) 03/09/19 10:35 Ur Phencyclidine Scrn Negative (NEG=<25) 03/09/19 10:35 Ur Amphetamines Screen Negative (NEG=<1000) 03/09/19 10:35 U Benzodiazepines Scrn Negative (NEG=<200) 03/09/19 10:35 Urine Cocaine Screen Positive (NEG=<300) A 03/09/19 10:35 U Marijuana (THC) Screen Negative (NEG=<50) 03/09/19 10:35 Opioid Opioid Risk Tool Age (Srinath box if 16-45): No History of Preadolescent Sexual Abuse: No Total: 0 Total Score Risk Category: Low Risk Copyright: Dustin OLIVARES predicting aberrant behaviors Diagnosis Discharge Problem: Status post cholecystectomy Abdominal pain Qualifiers: Abdominal location: generalized Qualified Code(s): R10.84 - Generalized abdominal pain Instructions Forms: Excuse From Work or School Patient Portal
[2019-03-09 10:44] LABS: BILIRUBIN,URINE NEGATIVE (NEGATIVE); BLOOD/HEMOGLOBIN,URINE NEGATIVE (NEGATIVE); GLUCOSE, URINE NEGATIVE (NEGATIVE); KETONES,URINE NEGATIVE (NEGATIVE); LEUKOCYTE ESTERASE ,URINE 1+ (NEGATIVE); NITRITES,URINE NEGATIVE (NEGATIVE); PROTEIN,URINE NEGATIVE (NEGATIVE); UROBILINOGEN,URINE NORMAL (NORMAL)
[2019-03-09 10:55] LABS: APPEARANCE,URINE CLEAR (CLEAR); COLOR,URINE YELLOW (YELLOW); RBC,URINE NONE SEEN /HPF (0-3)
[2019-03-09 10:56] LABS: BACTERIA,URINE NEGATIVE /HPF (NEGATIVE); SQUAMOUS EPITHELIAL CELL,UR RARE /HPF (NEGATIVE)
[2019-03-09 12:24] LABS: AMYLASE 44 Units/L (25-115); LIPASE 95 Units/L (73-393)
[2019-03-09] MEDS ORDERED: DESYREL PO PRN (13:39)
[2019-03-09] MEDS ORDERED: MAALOX or MYLANTA PO PRN (13:40)
[2019-03-09] MEDS: NS 1000 ML 1,000 ML IV SCH (14:07)
[2019-03-09] MEDS: PROTONIX INJ 40 MG VIAL 80 MG in NS 100 ML IV 80 ML IV SCH ×2 (14:07→23:00)
[2019-03-09] MEDS: DEMEROL INJ IVP PRN ×3 (14:08→23:02)
[2019-03-09] MEDS: PEPCID 20 MG IV PREMIX* 20 MG/50 ML BAG IV SCH ×2 (14:23→21:14)
[2019-03-09] MEDS: MAGIC MOUTHWASH PO SCH ×2 (14:24→21:51)
--- NOTE | 2019-03-09 16:37 | RAD ---
HISTORY: Chest pain Study: Single view of the chest. Comparison: None. Findings: The cardiomediastinal silhouette is normal. No focal consolidations, pleural effusions or pneumothorax. Osseous structures demonstrate no acute abnormality. IMPRESSION: 1. No acute cardiopulmonary process. Reported By:
[2019-03-09] MEDS ORDERED: KLOR-CON PO PRN (16:45)
[2019-03-09] MEDS ORDERED: MICRO K EXTEN CAP 10 MEQ PO PRN (16:45)
[2019-03-09] MEDS ORDERED: K-RIDER 10 MEQ/NS 100 ML 10 MEQ/100 ML BAG IV PRN (16:45)
[2019-03-09] MEDS ORDERED: POTASSIUM CHLORIDE LIQ 20 MEQ UDC PO PRN (16:45)
[2019-03-09] MEDS ORDERED: POTASSIUM CHL 60 MEQ/NS 0.45% 500 ML IV PRN (16:45)
[2019-03-09] MEDS ORDERED: POTASSIUM CHL 40 MEQ/NS 0.45% 500 ML IV PRN (16:45)
[2019-03-09] MEDS: K-DUR TAB 20 MEQ PO PRN (16:53)
[2019-03-09] MEDS ORDERED: K-DUR TAB 20 MEQ PO ONE (16:55)
[2019-03-09] MEDS ORDERED: MAGNESIUM SULFATE 1 GRAM/100 mL PREMIX 2 G/200 ML BAG IV ONE (17:27)
[2019-03-09] MEDS ORDERED: MAGNESIUM SULFATE 1 GRAM/100 mL PREMIX 1 G/100 ML BAG IV ONE (18:31)
[2019-03-09] MEDS: SEROquel TAB 25 mg PO SCH (21:43)
[2019-03-10 04:45] LABS: BASOPHILS % (AUTO) 0.2 % (0.2-1.0); EOSINOPHILS # (AUTO) 0.1 x10^3/uL (0.0-0.2); EOSINOPHILS % (AUTO) 1.1 % (0.9-2.9); HEMATOCRIT 34.2 % (36.0-47.0); HEMOGLOBIN 12.1 g/dL (12.0-16.0); LYMPHOCYTES # (AUTO) 1.4 X10^3/uL (1.3-2.9); LYMPHOCYTES % (AUTO) 16.4 % (21.0-51.0); MEAN CORPUSCULAR HEMOGLOBIN 33.9 pg (27.0-34.0); MEAN CORPUSCULAR HGB CONC 35.2 g/dL (33.0-35.0); MEAN CORPUSCULAR VOLUME 96.3 fL (80.0-100.0); MEAN PLATELET VOLUME 10.2 fL (7.4-11.0); MONOCYTES # (AUTO) 0.7 x10^3/uL (0.3-0.8); MONOCYTES % (AUTO) 8.6 % (0.0-13.0); NEUTROPHILS # (AUTO) 6.2 x10^3/uL (2.2-4.8); NEUTROPHILS % (AUTO) 73.7 % (42.0-75.0); PLATELET COUNT 161 X10^3/uL (150.0-450.0); RED BLOOD COUNT 3.56 X10^6/uL (3.5-5.4); RED CELL DISTRIBUTION WIDTH 12.6 % (11.6-16.5); WHITE BLOOD COUNT 8.4 X10^3/uL (3.6-10.0)
[2019-03-10 05:02] LABS: ALANINE AMINOTRANSFERASE 89 Units/L (12-78); ALBUMIN 3.1 g/dL (3.4-5.0); ALKALINE PHOSPHATASE 70 Units/L (46-116); AMYLASE 39 Units/L (25-115); ASPARTATE AMINO TRANSFERASE 23 Units/L (15-37); BLOOD UREA NITROGEN 4 mg/dL (7-18); CALCIUM 8.3 mg/dL (8.5-10.1); CARBON DIOXIDE 27.5 mmol/L (21-32); CHLORIDE 103 mmol/L (98-107); LIPASE 81 Units/L (73-393); MAGNESIUM 2.1 mg/dL (1.7-2.9); SODIUM 139 mmol/L (136-145); TOTAL PROTEIN 6.4 g/dL (6.4-8.2); eGFR NON BLACK RACES > 60 (>60)
[2019-03-10] MEDS: NS 1000 ML 1,000 ML IV SCH ×3 (05:50→20:20)
[2019-03-10] MEDS: DEMEROL INJ IVP PRN ×2 (06:26→10:24)
[2019-03-10] MEDS: MAGIC MOUTHWASH PO SCH ×3 (06:26→21:27)
[2019-03-10] MEDS: PEPCID 20 MG IV PREMIX* 20 MG/50 ML BAG IV SCH ×2 (08:20→20:49)
[2019-03-10] MEDS: PROTONIX INJ 40 MG VIAL 80 MG in NS 100 ML IV 80 ML IV SCH ×2 (10:23→20:49)
[2019-03-10] MEDS ORDERED: MYLICON TAB 80 MG CHEW PO PRN (10:35)
[2019-03-10] MEDS ORDERED: DULCOLAX SUPPOSITORY 10 MG RECTAL ONE (10:35)
--- NOTE | 2019-03-10 10:56 | RAD ---
Examination: KUB History: Constipation Comparison reference abdomen CT 03/08/2019 Findings: There is moderate to severe gaseous dilatation of bowel, primarily colon although some small-bowel contributes. There is no evidence for fecal impaction. No visceral enlargement or ascites is seen. There are surgical clips in the right upper quadrant. Impression: Intestinal distention most likely related to a reflex ileus. A distal obstruction is considered less likely but should be considered with follow-up imaging if clinically indicated. Reported By:
[2019-03-10] MEDS: MIRALAX POWDER (1 DOSE 17 G) PO SCH (11:32)
[2019-03-10] MEDS: MILK OF MAGNESIA PO SCH (11:32)
[2019-03-10 11:33] LABS: CKMB % 2.9 % (<4); CREATINE KINASE 35 Units/L (26-192); CREATINE KINASE MB < 1.0 ng/mL (0-4.0); TROPONIN I < 0.02 ng/mL (0-1.5)
[2019-03-10] MEDS: NORCO 5/325 MG TAB PO PRN (14:44)
[2019-03-10] MEDS: ZOFRAN INJ 4 MG VIAL IVP PRN ×2 (14:46→21:44)
[2019-03-10] MEDS ORDERED: NULYTELY or GO-LYTELY PO ONE (16:00)
[2019-03-10] MEDS: NULYTELY or GO-LYTELY PO SCH (16:20)
[2019-03-10] MEDS: SEROquel TAB 25 mg PO SCH (20:50)
[2019-03-11 04:51] LABS: BASOPHILS % (AUTO) 0.4 % (0.2-1.0); EOSINOPHILS # (AUTO) 0.1 x10^3/uL (0.0-0.2); EOSINOPHILS % (AUTO) 0.7 % (0.9-2.9); HEMATOCRIT 39.3 % (36.0-47.0); HEMOGLOBIN 13.7 g/dL (12.0-16.0); LYMPHOCYTES # (AUTO) 1.6 X10^3/uL (1.3-2.9); LYMPHOCYTES % (AUTO) 14.3 % (21.0-51.0); MEAN CORPUSCULAR HEMOGLOBIN 33.3 pg (27.0-34.0); MEAN CORPUSCULAR HGB CONC 34.9 g/dL (33.0-35.0); MEAN CORPUSCULAR VOLUME 95.6 fL (80.0-100.0); MEAN PLATELET VOLUME 10.6 fL (7.4-11.0); MONOCYTES # (AUTO) 0.7 x10^3/uL (0.3-0.8); MONOCYTES % (AUTO) 6.2 % (0.0-13.0); NEUTROPHILS # (AUTO) 8.7 x10^3/uL (2.2-4.8); NEUTROPHILS % (AUTO) 78.4 % (42.0-75.0); PLATELET COUNT 209 X10^3/uL (150.0-450.0); RED BLOOD COUNT 4.11 X10^6/uL (3.5-5.4); RED CELL DISTRIBUTION WIDTH 12.3 % (11.6-16.5); WHITE BLOOD COUNT 11.1 X10^3/uL (3.6-10.0)
[2019-03-11 04:59] LABS: ALANINE AMINOTRANSFERASE 65 Units/L (12-78); ALBUMIN 3.3 g/dL (3.4-5.0); ALKALINE PHOSPHATASE 88 Units/L (46-116); ASPARTATE AMINO TRANSFERASE 15 Units/L (15-37); BLOOD UREA NITROGEN 8 mg/dL (7-18); CALCIUM 8.9 mg/dL (8.5-10.1); CARBON DIOXIDE 27.2 mmol/L (21-32); CHLORIDE 100 mmol/L (98-107); COR CA(FOR HYPOALB) 9.5 mg/dL (8.5-10.1); COR NA(FOR HYPERGLY) 137 mmol/L (136-145); CREATININE 0.76 mg/dL (0.55-1.02); SODIUM 137 mmol/L (136-145); TOTAL PROTEIN 7.3 g/dL (6.4-8.2); eGFR NON BLACK RACES > 60 (>60)
[2019-03-11] MEDS: MAGIC MOUTHWASH PO SCH ×5 (06:03→22:22)
[2019-03-11] MEDS: PROTONIX INJ 40 MG VIAL 80 MG in NS 100 ML IV 80 ML IV SCH ×3 (06:03→17:29)
[2019-03-11] MEDS: NS 1000 ML 1,000 ML IV SCH ×3 (06:03→22:25)
[2019-03-11] MEDS: MILK OF MAGNESIA PO SCH (09:33)
[2019-03-11] MEDS: PEPCID 20 MG IV PREMIX* 20 MG/50 ML BAG IV SCH ×2 (09:34→20:39)
[2019-03-11] MEDS: MIRALAX POWDER (1 DOSE 17 G) PO SCH (09:34)
[2019-03-11] MEDS: ZOFRAN INJ 4 MG VIAL IVP PRN ×2 (10:20→23:56)
[2019-03-11] MEDS ORDERED: BENADRYL INJ 50 MG VIAL IVP ONE (11:49)
--- NOTE | 2019-03-11 12:18 | RAD ---
HISTORY: Ileus, constipation Study: KUB Comparison: 03/10/2019 Findings: Bowel dilatation is slightly decreased when compared to prior. Multiple surgical clips overlying the abdomen. No pathological soft tissue mass or calcification can be observed. The bony structures are grossly intact. IMPRESSION: Minimally decreased ileus bowel gas pattern. Reported By:
[2019-03-11] MEDS: K-DUR TAB 20 MEQ PO PRN (12:36)
[2019-03-11] MEDS: NULYTELY or GO-LYTELY PO SCH (17:29)
[2019-03-11] MEDS: SEROquel TAB 25 mg PO SCH (20:38)
[2019-03-12] MEDS: NS 1000 ML 1,000 ML IV SCH ×3 (01:28→13:16)
[2019-03-12] MEDS: PROTONIX INJ 40 MG VIAL 80 MG in NS 100 ML IV 80 ML IV SCH (01:29)
[2019-03-12 04:51] LABS: BASOPHILS % (AUTO) 0.2 % (0.2-1.0); EOSINOPHILS # (AUTO) 0.2 x10^3/uL (0.0-0.2); EOSINOPHILS % (AUTO) 3.4 % (0.9-2.9); HEMATOCRIT 32.3 % (36.0-47.0); LYMPHOCYTES # (AUTO) 1.7 X10^3/uL (1.3-2.9); LYMPHOCYTES % (AUTO) 26.1 % (21.0-51.0); MEAN CORPUSCULAR HEMOGLOBIN 34.3 pg (27.0-34.0); MEAN CORPUSCULAR HGB CONC 35.4 g/dL (33.0-35.0); MEAN CORPUSCULAR VOLUME 96.9 fL (80.0-100.0); MEAN PLATELET VOLUME 10.1 fL (7.4-11.0); MONOCYTES # (AUTO) 0.4 x10^3/uL (0.3-0.8); MONOCYTES % (AUTO) 6.3 % (0.0-13.0); NEUTROPHILS # (AUTO) 4.3 x10^3/uL (2.2-4.8); PLATELET COUNT 182 X10^3/uL (150.0-450.0); RED BLOOD COUNT 3.34 X10^6/uL (3.5-5.4); RED CELL DISTRIBUTION WIDTH 12.3 % (11.6-16.5); WHITE BLOOD COUNT 6.7 X10^3/uL (3.6-10.0)
[2019-03-12 05:03] LABS: HEMOGLOBIN 11.4 g/dL (12.0-16.0)
[2019-03-12] MEDS: MAGIC MOUTHWASH PO SCH (05:04)
[2019-03-12 05:12] LABS: ALANINE AMINOTRANSFERASE 38 Units/L (12-78); ALBUMIN 2.6 g/dL (3.4-5.0); ALKALINE PHOSPHATASE 68 Units/L (46-116); ASPARTATE AMINO TRANSFERASE 11 Units/L (15-37); BLOOD UREA NITROGEN 6 mg/dL (7-18); CALCIUM 8.4 mg/dL (8.5-10.1); CHLORIDE 105 mmol/L (98-107); COR CA(FOR HYPOALB) 9.5 mg/dL (8.5-10.1); CREATININE 0.74 mg/dL (0.55-1.02); SODIUM 142 mmol/L (136-145); TOTAL PROTEIN 5.8 g/dL (6.4-8.2); eGFR NON BLACK RACES > 60 (>60)
[2019-03-12] MEDS: K-DUR TAB 20 MEQ PO PRN (06:02)
[2019-03-12] MEDS: ZOFRAN INJ 4 MG VIAL IVP PRN (06:03)
[2019-03-12] MEDS: MAGNESIUM SULFATE 1 GRAM/100 mL PREMIX 1 GM/100 ML BAG IV PRN ×2 (06:35→12:42)
[2019-03-12] MEDS ORDERED: PHARMACY CONSULT - DOSE _____ XX SCH (08:00)
[2019-03-12] MEDS: MIRALAX POWDER (1 DOSE 17 G) PO SCH (08:05)
[2019-03-12] MEDS: MILK OF MAGNESIA PO SCH (08:05)
[2019-03-12] MEDS: NORCO 5/325 MG TAB PO PRN (08:05)
--- NOTE | 2019-03-12 08:12 | RAD ---
HISTORY: Abdominal pain Study: KUB Comparison: 03/11/2019 Findings: Increased small and large bowel gas is identified when compared with the prior examination. Gas can be seen from cecum through rectum. Findings are most consistent with increasing generalized ileus. Cecal diameter 9.7 cm. No abnormal masses or abnormal calcifications are identified. IMPRESSION: Findings consistent with increasing ileus Reported By:
[2019-03-12] MEDS: PEPCID 20 MG IV PREMIX* 20 MG/50 ML BAG IV SCH (08:47)
[2019-03-12] MEDS ORDERED: ZITHROMAX INJ 500 MG VIAL 500 MG in D5W 250 ML IV 250 ML IV SCH (09:00)
[2019-03-12] MEDS ORDERED: LOVENOX INJ 40 MG SYR SC SCH (10:00)
[2019-03-12 13:10] VITALS: BP 149/66
--- NOTE | 2019-03-12 13:20 | DR.H&P ---
H&P - History & Physical for Day of: H&P Date: 03/09/19 - Chief Complaint Chief Complaint: abdominal pain, constipation - History of Present Illness History of Present Illness: PATIENT IS 54YR OLD WHITE FEMALE IN ER WITH ABDOMINAL PAIN AND DISTENSION, NAUSEA AND VOMITING TIMES 2 DAYS. PATIENT IS S/P LAP CHOLECYSTECTOMY 2 DAYS AGO. SHE WAS DISCHARGE HOME YESTERDAY AND CAME TO ER SAME DAY BECAUSE OF INCREASING PAIN. WAS EVALUATED WITH NORMAL LABS RESULTS AND CT ABDPELVIS WAS WITHOUT ACUTE FINDIGNS AND DISCHARGE HOME. FEW HOURS LATER SHE IS HERE WITH SHARP 10/10 PAIN THAT IS DIFFUSE. - Past Medical History Past Medical History: Asthma - Past Surgical History Surgical History: , Cholecystectomy, Ortho Surgery - Family History Family Medical History: Cancer - Social History Does patient currently use any type of tobacco product: Yes Have you used tobacco products in the last 12 months: Yes Type of Tobacco Use: Cigarettes How many years tobacco product used: 5 Does any household member use tobacco: Yes Alcohol Use: None Drug Use: Cocaine - Medications Home Medications: No Known Drug Allergies Allergy (Verified 03/08/19 18:03) CONTINUE taking the following medications benzonatate 200 mg PO TID PRN 03/09/19 [History] hydrocodone-acetaminophen [Dickinson] 1 tab PO Q4H PRN 03/09/19 [History] pantoprazole 40 mg PO DAILY 03/09/19 [History] quetiapine 25 mg PO HS 03/09/19 [History] trazodone 50 - 100 mg PO HS PRN 03/09/19 [History] New Prescriptions docusate sodium [Colace] 200 mg PO QHS #60 cap 03/10/19 [Rx] simethicone [Mi-Acid Gas Relief] 160 mg PO BID-TID PRN #120 tab 03/10/19 [Rx] - Review of Systems Constitutional: No Symptoms Reported Eyes: No Symptoms Reported ENT: No Symptoms Reported Respiratory: No Symptoms Reported Cardiovascular: No Symptoms Reported Gastrointestinal: Nausea, Abdominal Pain, Constipation Genitourinary: No Symptoms Reported Musculoskeletal: No Symptoms Reported Skin: No Symptoms Reported Neurological: No Symptoms Reported - Physical Exam Vital Signs: Temperature 99.0 F Pulse Rate [Left Radial] 54 Pulse Rate 62 Respiratory Rate 20 Blood Pressure [Right Arm] 148/85 Blood Pressure [Left Arm] 149/66 Blood Pressure 161/77 O2 Sat by Pulse Oximetry 98 Oriented: Normal Eyes: Normal Nose: Normal Throat: Normal Respiratory: Clear Throughout Cardiovascular: Normal : Normal Auscultation: Bowel Sounds: Normal Palpation: Normal Tenderness: Diffuse, Mild Skin: Normal, Wound (POST LAP FARRUKH INCISIONS WITH MITCH INTACT) Musculoskeletal: Normal Psychiatric: Anxiety Affect: Anxious Speech Pattern: Clear, Appropriate - Assessment/Plan (1) Postoperative ileus Status: Acute Plan: ADMIT, IV HYDRATION, BOWEL REGIMEN. SIMETHICONE, NAUSEA CONTROL. AMBULATE PATIENT, PAIN CONTROL PRN. AM CXR (2) Constipation Status: Acute (3) Status post cholecystectomy Status: Acute - Allergies Allergies/Adverse Reactions: Allergies Allergy/AdvReac Type Severity Reaction Status Date / Time No Known Drug Allergies Allergy Verified 03/08/19 18:03
--- NOTE | 2019-03-12 13:25 | PCM.PROG ---
Progress Note - Subjective Subjective: 54 WF ER ADMISSION WITH CO CONSTIPATION AND TRAPPED GAS FOLLOW LAP FARRUKH ON TUESDAY OF LAST WEEK. PT WAS STARTED ON [place] AND HAD STOOL SOFTENERS AND DULCOLAX SUPP WITH MINIMAL OUTPT. PT CO NAUSEA THIS AM. PT REFUSED PHENERGAN IM. PT DOES HAVE DIFFUSE ABDOMINAL DISTENTION, INCREASE BELCHING AND PASSING GAS REPORTED PER PT AND NURSING STAFF. PT HAS POST OPERATIVE INCISIONS WITH MITCH INTACT, NO S/S INFECTIONS. REPEAT KUB THIS AM, PO PAIN CONTROL ONLY, IV HYDRATION GENTLE ORAL HYDRATION, ENCOURAGE PT TO AMBULATE. BOWEL REGIMEN - Past Medical Family Social History Past Med/Fam/Surg Hx: No changes since H&P Allergies: Allergies No Known Drug Allergies Allergy (Verified 03/08/19 18:03) - Review of Systems ROS: No change since H&P - Vital Signs and I&O's Vital Signs: Temperature 99.0 F Pulse Rate [Left Radial] 54 Pulse Rate 62 Respiratory Rate 20 Blood Pressure [Right Arm] 148/85 Blood Pressure [Left Arm] 149/66 Blood Pressure 161/77 O2 Sat by Pulse Oximetry 98 Intake and Output: Intake & Output 03/10/19 03/11/19 03/12/19 03/13/19 11:59 11:59 11:59 11:59 Intake Total 670 / 670 1766 / 1766 1750 / 1750 Output Total 1600 / 1600 900 / 900 Balance -930 / -930 866 / 866 1750 / 1750 - Physical Exam Oriented: Normal Eyes: Normal Nose: Normal Throat: Normal Cardiovascular: Normal : Normal Auscultation: Bowel Sounds: Normal Tenderness: Diffuse, Mild Skin: Normal, Wound (POST LAP FARRUKH INCISIONS WITH MITCH INTACT) Musculoskeletal: Normal Psychiatric: Anxiety Affect: Anxious Speech Pattern: Clear, Appropriate - Laboratory and Diagnostics Result Diagrams: 03/12/19 03:52 03/12/19 03:52 Labs: Laboratory WBC 6.7 X10^3/uL (3.6-10.0) 03/12/19 03:52 RBC 3.34 X10^6/uL (3.5-5.4) L 03/12/19 03:52 Hgb 11.4 g/dL (12.0-16.0) L D 03/12/19 03:52 Hct 32.3 % (36.0-47.0) L 03/12/19 03:52 MCV 96.9 fL (80.0-100.0) 03/12/19 03:52 MCH 34.3 pg (27.0-34.0) H 03/12/19 03:52 MCHC 35.4 g/dL (33.0-35.0) H 03/12/19 03:52 RDW 12.3 % (11.6-16.5) 03/12/19 03:52 Plt Count 182 X10^3/uL (150.0-450.0) 03/12/19 03:52 MPV 10.1 fL (7.4-11.0) 03/12/19 03:52 Neut % (Auto) 64.0 % (42.0-75.0) 03/12/19 03:52 Lymph % (Auto) 26.1 % (21.0-51.0) 03/12/19 03:52 [place] % (Auto) 6.3 % (0.0-13.0) 03/12/19 03:52 Eos % (Auto) 3.4 % (0.9-2.9) H 03/12/19 03:52 Baso % (Auto) 0.2 % (0.2-1.0) 03/12/19 03:52 Neut # (Auto) 4.3 x10^3/uL (2.2-4.8) 03/12/19 03:52 Lymph # (Auto) 1.7 X10^3/uL (1.3-2.9) 03/12/19 03:52 [place] # (Auto) 0.4 x10^3/uL (0.3-0.8) 03/12/19 03:52 Eos # (Auto) 0.2 x10^3/uL (0.0-0.2) 03/12/19 03:52 Baso # (Auto) 0.0 X10^3/uL (0.0-0.1) 03/12/19 03:52 Absolute Nucleated RBC 0.1 /100WBC 03/12/19 03:52 Sodium 142 mmol/L (136-145) 03/12/19 03:52 Corrected Sodium TNP 03/12/19 03:52 Potassium 3.2 mmol/L (3.5-5.1) L 03/12/19 03:52 Chloride 105 mmol/L (98-107) 03/12/19 03:52 Carbon Dioxide 29.0 mmol/L (21-32) 03/12/19 03:52 BUN 6 mg/dL (7-18) L 03/12/19 03:52 Creatinine 0.74 mg/dL (0.55-1.02) 03/12/19 03:52 Est GFR (MDRD) Af Amer > 60 (>60) 03/12/19 03:52 Est GFR (MDRD) Non-Af > 60 (>60) 03/12/19 03:52 Glucose 89 mg/dL (65-99) 03/12/19 03:52 Calcium 8.4 mg/dL (8.5-10.1) L 03/12/19 03:52 Corrected Calcium 9.5 mg/dL (8.5-10.1) 03/12/19 03:52 Magnesium 1.8 mg/dL (1.7-2.9) 03/12/19 03:52 Total Bilirubin 0.60 mg/dL (0.2-1.0) 03/12/19 03:52 AST 11 Units/L (15-37) L 03/12/19 03:52 ALT 38 Units/L (12-78) 03/12/19 03:52 Alkaline Phosphatase 68 Units/L (46-116) 03/12/19 03:52 Creatine Kinase 35 Units/L (26-192) 03/10/19 03:55 CK-MB (CK-2) < 1.0 ng/mL (0-4.0) 03/10/19 03:55 CK/CKMB % Calc 2.9 % (<4) 03/10/19 03:55 Troponin I < 0.02 ng/mL (0-1.5) 03/10/19 03:55 Total Protein 5.8 g/dL (6.4-8.2) L 03/12/19 03:52 Albumin 2.6 g/dL (3.4-5.0) L 03/12/19 03:52 Globulin 3.2 g/dL (2.5-4.5) 03/12/19 03:52 Albumin/Globulin Ratio 0.8 Ratio (1.1-2.1) L 03/12/19 03:52 Amylase 39 Units/L (25-115) 03/10/19 03:55 Lipase 81 Units/L (73-393) 03/10/19 03:55 Specimen Type Clean catch urine 03/09/19 10:38 Urine Color Yellow (YELLOW) 03/09/19 10:38 Urine Appearance Clear (CLEAR) 03/09/19 10:38 Urine pH 7.0 (5.0 - 8.0) 03/09/19 10:38 Ur Specific [place] 1.015 (1.000-1.030) 03/09/19 10:38 Urine Protein Negative (NEGATIVE) 03/09/19 10:38 Urine Glucose (UA) Negative (NEGATIVE) 03/09/19 10:38 Urine Ketones Negative (NEGATIVE) 03/09/19 10:38 Urine Occult Blood Negative (NEGATIVE) 03/09/19 10:38 Urine Nitrite Negative (NEGATIVE) 03/09/19 10:38 Urine Bilirubin Negative (NEGATIVE) 03/09/19 10:38 Urine Urobilinogen Normal (NORMAL) 03/09/19 10:38 Ur Leukocyte Esterase 1+ (NEGATIVE) 03/09/19 10:38 Urine RBC None seen /HPF (0-3) 03/09/19 10:38 Urine WBC 3-5 /HPF (0-5) 03/09/19 10:38 Ur Squamous Epith Cells Rare /HPF (NEGATIVE) 03/09/19 10:38 Urine Bacteria Negative /HPF (NEGATIVE) 03/09/19 10:38 Ur Culture Indicated? No/not indicated 03/09/19 10:38 Urine Opiates Screen Positive (NEG=<300) A 03/09/19 10:35 Urine Methadone Screen Negative (NEG=<300) 03/09/19 10:35 Ur Barbiturates Screen Negative (NEG=<200) 03/09/19 10:35 Ur Phencyclidine Scrn Negative (NEG=<25) 03/09/19 10:35 Ur Amphetamines Screen Negative (NEG=<1000) 03/09/19 10:35 U Benzodiazepines Scrn Negative (NEG=<200) 03/09/19 10:35 Urine Cocaine Screen Positive (NEG=<300) A 03/09/19 10:35 U Marijuana (THC) Screen Negative (NEG=<50) 03/09/19 10:35 - Plan (1) Postoperative ileus Status: Acute Plan: IV HYDRATION, BOWEL REGIMEN. SIMETHICONE, PPI THERAPY. NAUSEA CONTROL. AMBULATE PATIENT, PO PAIN CONTROL PRN FOR POST OP PAIN. AM KUB (2) Constipation Status: Acute (3) Status post cholecystectomy Status: Acute
== END 2019-03-12 14:30 | disposition home or self-care (01) | DRG 394 ==
LOC: ER 09:05 → ICU 09:05
PROVIDERS: ADMIT Internal Medicine; ATTEND Internal Medicine
DX: G89.18 Other acute postprocedural pain; K56.7 Ileus, unspecified; R11.2 Nausea with vomiting, unspecified; K91.89 Other postprocedural complications and disorders of digestive system; R10.84 Generalized abdominal pain; K59.09 Other constipation; Z98.890 Other specified postprocedural states
CPT/HCPCS: 36415; 71010; 71045; 74000; 74018; 74177; 80053; 80307; 81001; 82150; 82550; 82553; 83690; 83735; 84132; 84484; 85025; 93005; 96365; 96374; 96375; 99283; 99284; A4222; C9113; S0028; G0378; G0434; J0456; J1200; J2175; J2405; J3475; J7030; J7040; J7050; J7060